=== PATIENT | male | born 1975 | race Caucasian/White ===

== ENCOUNTER 2022-07-10 04:40 | Emergency (ER) | payer OTHER ==
[~2022-07-10] VITALS: Ht 177.8 cm; Wt 72.6 kg
[2022-07-10 05:03] VITALS: BP 134/68
--- NOTE | 2022-07-10 05:11 | NUR ---
PT TAKEN TO BED 7
--- NOTE | 2022-07-10 06:22 | NUR ---
46/M BIB BIB SELF C/C FEELING WEIRD S/P SMOKING A LOT OF MARIJUANA. PER PATIENT HE USUALLY SMOKES BUT THIS TIME HE WAS FEELING DIFFFERENT. PATIENT ALSO REPORTS HAVING LOWER BACK PAIN 06/14. PATIENT AAOX4 AND AMBULATORY. DOESNT APPEAR TO BE IN DISTRESS. PATIENT PLACED IN BED AND GOWN. BED LOW AND LOCKED. ALL NEEDS MET DENIES PMHX ALLERGIES ACETAMINOPHEN
--- NOTE | 2022-07-10 06:24 | NUR ---
Dr. Grossman examining patient.
[2022-07-10] MEDS ORDERED: KETOROLAC 60 MG/2 ML VIAL IM ONE (06:30)
[2022-07-10] MEDS ORDERED: ATA25 PO (06:35)
[2022-07-10] MEDS ORDERED: IBUP-2213 PO (06:35)
[2022-07-10] MEDS ORDERED: ONDA8TAB87 PO (06:35)
[2022-07-10 06:45] VITALS: BP 129/70
--- NOTE | 2022-07-10 06:45 | NUR ---
Patient discharged with v/s stable. Written and verbal after care instructions given PANIC ATTACK and explained. Patient alert, oriented and verbalized understanding of instructions. Ambulatory with steady gait. All questions addressed prior to discharge. ID band removed. Patient advised to follow up with PMD. Rx of ATARAX, IBUPROFEN, ZOFRAN given.
== END 2022-07-10 06:45 | disposition home or self-care (01) ==
LOC: MED 04:40
DX: F41.9 Anxiety disorder, unspecified (principal); R07.89 Other chest pain; R11.2 Nausea with vomiting, unspecified; F17.200 Nicotine dependence, unspecified, uncomplicated; F12.90 Cannabis use, unspecified, uncomplicated; Z88.6 Allergy status to analgesic agent; Z98.890 Other specified postprocedural states
CPT/HCPCS: 96372; 99283; J1885

== ENCOUNTER 2022-07-17 02:55 | Emergency (ER) | payer OTHER ==
[~2022-07-17] VITALS: Ht 177.8 cm; Wt 68.0 kg
[~2022-07-17 02:55] MED LIST: ATA25 PO; IBUP-2213 PO; ONDA8TAB87 PO
[2022-07-17 03:10] VITALS: BP 99/63
--- NOTE | 2022-07-17 03:14 | NUR ---
TO LOBBY FOLLOWING TRIAGE
[2022-07-17] MEDS ORDERED: KETOROLAC 30 MG/ML VIAL IM ONE (05:20)
[2022-07-17] MEDS ORDERED: CYCL-711 PO (05:24)
[2022-07-17] MEDS ORDERED: ACET-10509 PO (05:24)
[2022-07-17 05:35] VITALS: BP 99/63
--- NOTE | 2022-07-17 05:35 | NUR ---
Patient discharged with v/s stable. Written and verbal after care instructions given and explained. Patient alert, oriented and verbalized understanding of instructions. Ambulatory with steady gait. All questions addressed prior to discharge. ID band removed. Patient advised to follow up with PMD. Rx of FLEXERIL AND TYLENOL given. Patient educated on indication of medication including possible reaction and side effects. Opportunity to ask questions provided and answered.
== END 2022-07-17 05:35 | disposition home or self-care (01) ==
LOC: MED 02:55
DX: M54.6 Pain in thoracic spine (principal); F17.200 Nicotine dependence, unspecified, uncomplicated; Z88.6 Allergy status to analgesic agent
CPT/HCPCS: 96372; 99283; J1885

== ENCOUNTER 2022-07-21 12:55 | Emergency (ER) | payer OTHER ==
[~2022-07-21 12:55] MED LIST changes: +ACET-10509 PO; +CYCL-711 PO
--- NOTE | 2022-07-21 13:14 | NUR ---
PATIENT LEFT WITHOUT BEING SEEN BY DR. GUERIN. NO FURTHER CARE PROVIDED FOR PATIENT.
== END 2022-07-21 13:15 | disposition left against medical advice (07) ==
LOC: MED 13:15
DX: M54.50 Low back pain, unspecified (principal); Z53.21 Procedure and treatment not carried out due to patient leaving prior to being seen by health care provider

== ENCOUNTER 2023-06-28 19:27 | Emergency (ER) | payer OTHER ==
[~2023-06-28] VITALS: Ht 177.8 cm; Wt 65.8 kg
[2023-06-28 19:41] VITALS: BP 119/70; PULSE 81; RESP 17; TEMP 97.8; O2SAT 97
== END 2023-06-28 22:42 | disposition left against medical advice (07) ==
LOC: MED 19:27
DX: H57.12 Ocular pain, left eye (principal); Z53.21 Procedure and treatment not carried out due to patient leaving prior to being seen by health care provider
CPT/HCPCS: 99281